=== PATIENT | female | born 1995 | race Two or more races ===

== ENCOUNTER 2018-01-12 20:59 | Emergency (ER) | payer MEDICAID ==
[~2018-01-12] VITALS: Ht 160 cm; Wt 103.7 kg
[2018-01-12 23:00] LABS: CLARITY URINE CLOUDY (CLEAR); COLOR URINE YELLOW (YELLOW); KETONES URINE NEGATIVE (NEGATIVE); LEUKOCYTE ESTERASE URINE NEGATIVE (NEGATIVE); NITRITE URINE NEGATIVE (NEGATIVE); OCCULT BLOOD URINE NEGATIVE (NEGATIVE); PH URINE 6.5 (4.5-8.0); PROTEIN URINE NEGATIVE (NEGATIVE); SPECIFIC GRAVITY URINE 1.027 (1.005-1.030); UROBILINOGEN URINE 0.2 E.U./dL (0.2-1.0)
[2018-01-13] MEDS ORDERED: PANTOPRAZOLE SODIUM 40 MG/VIAL IV STA (01:40)
[2018-01-13 02:02] LABS: BASOPHILS % 0.4 % (0.0-2.0); EOSINOPHILS % 2.2 % (0.0-5.0); HEMATOCRIT. 36.5 % (36.0-48.0); HEMOGLOBIN. 11.5 g/dL (12.0-16.0); LYMPHOCYTES % 30.2 % (20.0-50.0); MEAN CORPUSCULAR HEMOGLOBIN 24.4 pg (28.0-32.0); MEAN CORPUSCULAR VOLUME 77.3 fL (81.0-99.0); MEAN PLATELET VOLUME 8.9 fl (7.4-10.4); MONOCYTES % 5.2 % (2.0-8.0); PLATELET 350 x1000/uL (130-400); RED BLOOD CELL COUNT 4.72 mill/uL (4.2-5.4); RED CELL DISTRIBUTION WIDTH 13.9 % (11.6-14.6)
[2018-01-13 02:06] LABS: PROTHROMBIN TIME 10.8 sec (9.4-11.6)
[2018-01-13 02:08] LABS: ETHANOL BLOOD < 10 mg/dL
[2018-01-13 02:26] LABS: CHLORIDE 103 mEq/L (98-107)
[2018-01-13 04:05] VITALS: BP 120/74
== END 2018-01-13 04:28 | disposition home or self-care (01) ==
LOC: ER 20:59
DX: R10.13 Epigastric pain (principal); R10.11 Right upper quadrant pain; R30.0 Dysuria
CPT/HCPCS: 36415; 71045; 80053; 81003; 81025; 83690; 85025; 85610; 96374; 99285; C9113; G0482; Z7610